=== PATIENT | female | born 1960 | race Caucasian/White ===

== ENCOUNTER 2017-09-26 10:19 | Emergency (ER) | payer MEDICAID ==
[~2017-09-26] VITALS: Ht 177.8 cm; Wt 68.0 kg
[~2017-09-26 10:19] MED LIST: AUGMENTIN 875-1 EAC1 ORAL; BACTRIM DS TAB1 EAC1 ORAL; CIPRODEX OTIC7.5 M1 BOTH EARS; CYCLOBENZAPRINE10 MG ORAL; FLONASE ALLERG9.9 ML NS; GUAIFENESIN1200 MG PO; IBUPROFEN600 MG ORAL; NKM; ZYRTEC10 MG ORAL
[2017-09-26 10:40] VITALS: BP 131/79
--- NOTE | 2017-09-26 11:22 | Emergency Room Report ---
History of Present Illness General Chief Complaint: Dizziness Source: Patient Present Illness HPI Patient presents with reports of severe dizzy episodes Also vomiting Patient reports that she had an event on Tuesday did not eat very much during that time The next day on Tuesday she had an episode in the morning when she felt the building was falling over She has had several episodes since then During the exam while turning her head she had increased nausea again Denies any focal weakness denies any chest pain or shortness of breath she has had diarrhea denies any vomiting or dysuria Allergies: Coded Allergies: No Known Allergies (Unverified , 06/22/16) Patient History Past Medical History: see triage record Pertinent Family History: none Last Menstrual Period: Perimenopausal Now: No Reviewed Nursing Documentation: PMH: Agreed, PSxH: Agreed Nursing Documentation-PMH Past Medical History: No Stated History Hx Cardiac Problems: No Hx Hypertension: No Hx Asthma: No Hx COPD: No Hx Seizures: No Review of Systems All Other Systems: negative except mentioned in HPI Physical Exam Vital Signs Date Time Temp Pulse Resp B/P (MAP) Pulse Ox O2 Delivery O2 Flow Rate FiO2 09/26/17 10:27 98.2 93 16 126/86 100 Room Air Sp02 EP Interpretation: reviewed, normal General Appearance: well appearing, no apparent distress Head: normocephalic, atraumatic Eyes: bilateral eye PERRL, bilateral eye EOMI ENT: hearing grossly normal, normal pharynx, TMs + canals normal, uvula midline Neck: full range of motion, supple, no meningismus, no bony tend Respiratory: lungs clear, normal breath sounds, no rhonchi, no respiratory distress, no retraction, no accessory muscle use Cardiovascular #1: normal peripheral pulses, regular rate, rhythm, no edema, no gallop, no JVD, no murmur Gastrointestinal: normal bowel sounds, non tender, soft, no mass, no organomegaly, non-distended, no guarding, no hernia, no pulsatile mass, no rebound Genitourinary: no CVA tenderness Musculoskeletal: normal inspection Neurologic: oriented x3, responsive, solid waste landfill technician III-XII nml as tested, motor strength/ tone normal, sensory intact Psychiatric: mood/affect normal Skin: normal color, no rash, warm/dry, palpation normal Lymphatic: normal inspection, no adenopathy Medical Decision Making Diagnostic Impression: Primary Impression: Dizziness ER Course Patient is a fairly complex patient with multiple differential to consideration including but not limited to cardiac cardiopulmonary and vascular emergencies Intracranial pathology also entertained patient however is neurologically intact I did not feel CAT scan imaging was appropriate Baseline blood work are appropriate Patient had significant positional factor with the symptoms raising the likelihood of positional vertigo and will have initial conservative outpatient trial further outpatient evaluation with MRI with the appropriate if symptoms persisted Labs Test 09/26/17 11:03 09/26/17 11:10 Urine Color Yellow Urine Appearance Clear Urine pH 6.5 (4.5-8.0) Urine Specific Kramer 1.015 (1.005-1.035) Urine Protein Negative (NEGATIVE) Urine Glucose (UA) Negative (NEGATIVE) Urine Ketones 4+ (NEGATIVE) Urine Occult Blood 1+ (NEGATIVE) Urine Nitrite Negative (NEGATIVE) Urine Bilirubin Negative (NEGATIVE) Urine Urobilinogen Normal MG/DL (0.0-1.0) Urine Leukocyte Esterase 2+ (NEGATIVE) Urine RBC 2-4 /HPF (0 - 2) Urine WBC 2-4 /HPF (0 - 2) Urine Squamous Epithelial Cells Few /LPF (NONE/OCC) Urine Bacteria Few /HPF (NONE) Urine Mucus Few /LPF (NONE/OCC) Urine Opiates Screen Negative (NEGATIVE) Urine Barbiturates Screen Negative (NEGATIVE) Phencyclidine (PCP) Screen Negative (NEGATIVE) Urine Amphetamines Screen Negative (NEGATIVE) Urine Benzodiazepines Screen Negative (NEGATIVE) Urine Cocaine Screen Negative (NEGATIVE) Urine Marijuana (THC) Screen Negative (NEGATIVE) White Blood Count 8.6 K/UL (4.8-10.8) Red Blood Count 5.13 M/UL (4.20-5.40) Hemoglobin 15.7 G/DL (12.0-16.0) Hematocrit 46.8 % (37.0-47.0) Mean Corpuscular Volume 91 FL (80-99) Mean Corpuscular Hemoglobin 30.6 PG (27.0-31.0) Mean Corpuscular Hemoglobin Concent 33.6 G/DL (32.0-36.0) Red Cell Distribution Width 11.7 % (11.6-14.8) Platelet Count 251 K/UL (150-450) Mean Platelet Volume 8.8 FL (6.5-10.1) Neutrophils (%) (Auto) 78.8 % (45.0-75.0) Lymphocytes (%) (Auto) 14.7 % (20.0-45.0) Monocytes (%) (Auto) 5.3 % (1.0-10.0) Eosinophils (%) (Auto) 0.4 % (0.0-3.0) Basophils (%) (Auto) 0.8 % (0.0-2.0) Sodium Level 141 MMOL/L (136-145) Potassium Level 3.6 MMOL/L (3.5-5.1) Chloride Level 101 MMOL/L (98-107) Carbon Dioxide Level 25 MMOL/L (21-32) Anion Gap 15 mmol/L (5-15) Blood Urea Nitrogen 9 mg/dL (7-18) Creatinine 0.7 MG/DL (0.55-1.30) Estimat Glomerular Filtration Rate > 60 mL/min (>60) Glucose Level 92 MG/DL (74-106) Calcium Level 10.0 MG/DL (8.5-10.1) Total Bilirubin 0.9 MG/DL (0.2-1.0) Aspartate Amino Transf (AST/SGOT) 20 U/L (15-37) Alanine Aminotransferase (ALT/SGPT) 23 U/L (12-78) Alkaline Phosphatase 63 U/L (46-116) Total Creatine Kinase 63 U/L (26-308) Creatine Kinase MB 0.5 NG/ML (0.0-3.6) Creatine Kinase MB Relative Index 0.7 Troponin I 0.000 ng/mL (0.000-0.056) Total Protein 8.3 G/DL (6.4-8.2) Albumin 4.4 G/DL (3.4-5.0) Globulin 3.9 g/dL Albumin/Globulin Ratio 1.1 (1.0-2.7) Lipase 57 U/L (73-393) Rhythm Strip Diag. Results EP Interpretation: yes Rate: 67 Rhythm: NSR, no PVC's, no ectopy Last Vital Signs Date Time Temp Pulse Resp B/P (MAP) Pulse Ox O2 Delivery O2 Flow Rate FiO2 09/26/17 10:40 98.4 96 1 131/79 97 Room Air Status: improved Disposition: HOME, SELF-CARE Condition: Improved Scripts Meclizine Hcl* (MECLIZINE*) 25 Mg Tablet 25 MG ORAL THREE TIMES A DAY for 14 Days, TAB Prov: ARINA ZUNIGA D.O. 09/26/17 Referrals: [facility],REFERR[facility] (PCP) Additional Instructions: Patient is provided with the discharge instructions notified to follow up with primary doctor in the next 2-3 days otherwise return to the er with any worsening symptoms. Please note that this report is being documented using DRAGON technology. This can lead to erroneous entry secondary to incorrect interpretation by the dictating instrument. ARINA ZUNIGA D.O. Sep 26, 2017 11:22
[2017-09-26 11:39] LABS: BASOPHILS % (AUTO) 0.8 % (0.0-2.0); EOSINOPHILS % (AUTO) 0.4 % (0.0-3.0); HEMATOCRIT 46.8 % (37.0-47.0); HEMOGLOBIN 15.7 G/DL (12.0-16.0); LYMPHOCYTES % (AUTO) 14.7 % (20.0-45.0); MEAN CORPUSCULAR VOLUME 91 FL (80-99); MONOCYTES % (AUTO) 5.3 % (1.0-10.0); NEUTROPHILS % (AUTO) 78.8 % (45.0-75.0); PLATELET COUNT 251 K/UL (150-450); RED BLOOD COUNT 5.13 M/UL (4.20-5.40); RED CELL DISTRIBUTION WIDTH 11.7 % (11.6-14.8); WHITE BLOOD COUNT 8.6 K/UL (4.8-10.8)
[2017-09-26 11:39] LABS: APPEARANCE,URINE CLEAR; BILIRUBIN, URINE NEGATIVE (NEGATIVE); GLUCOSE, URINE (UA) NEGATIVE (NEGATIVE); KETONES,URINE 4+ (NEGATIVE); LEUKOCYTE ESTERASE ,URINE 2+ (NEGATIVE); NITRITE,URINE NEGATIVE (NEGATIVE); PH,URINE 6.5 (4.5-8.0); PROTEIN,URINE NEGATIVE (NEGATIVE); UROBILINOGEN,URINE NORMAL MG/DL (0.0-1.0)
[2017-09-26 11:52] VITALS: BP 108/92
[2017-09-26 12:11] LABS: COLOR,URINE YELLOW
[2017-09-26 12:22] LABS: ALANINE AMINOTRANSFERASE 23 U/L (12-78); ALBUMIN 4.4 G/DL (3.4-5.0); ALBUMIN/GLOBULIN RATIO 1.1 (1.0-2.7); ALKALINE PHOSPHATASE 63 U/L (46-116); ANION GAP 15 mmol/L (5-15); ASPARTATE AMINO TRANSFERASE 20 U/L (15-37); BILIRUBIN,TOTAL 0.9 MG/DL (0.2-1.0); BLOOD UREA NITROGEN 9 mg/dL (7-18); CARBON DIOXIDE 25 MMOL/L (21-32); CHLORIDE 101 MMOL/L (98-107); CREATININE 0.7 MG/DL (0.55-1.30); POTASSIUM 3.6 MMOL/L (3.5-5.1); SODIUM 141 MMOL/L (136-145)
[2017-09-26 12:23] LABS: CKMB 0.5 NG/ML (0.0-3.6); CREATINE KINASE 63 U/L (26-308)
[2017-09-26] MEDS ORDERED: MECLIZINE HCL25 MG ORAL (13:46)
[2017-09-26 13:59] VITALS: BP 121/73
--- NOTE | 2017-09-27 16:39 | Cardiology Report ---
APPROVED REPORT EKG Measurement Heart [id number] [place] [id number] Normal sinus rhythm with sinus arrhythmia Normal ECG
--- NOTE | 2017-09-27 16:39 | Cardiology Report ---
APPROVED REPORT EKG Measurement Heart [id number] [place] 132P65 [id number] Normal sinus rhythm with sinus arrhythmia Normal ECG
--- NOTE | 2017-09-27 16:39 | Cardiology Report ---
APPROVED REPORT EKG Measurement Heart [id number] [place] 132P65 [id number] Normal sinus rhythm with sinus arrhythmia Normal ECG
== END 2017-09-26 14:00 | disposition home or self-care (01) ==
LOC: EMR 11:10
DX: R42 Dizziness and giddiness (principal); R11.0 Nausea
CPT/HCPCS: 36415; 80053; 80307; 81003; 82550; 82553; 83690; 84484; 85025; 93005; 96361; 96374; 99284; J2405

== ENCOUNTER 2017-12-02 13:57 | Emergency (ER) | payer MEDICAID ==
[~2017-12-02] VITALS: Ht 175.3 cm; Wt 68.0 kg
[~2017-12-02 13:57] MED LIST changes: +MECLIZINE HCL25 MG ORAL
[2017-12-02] MEDS ORDERED: SUDAFED 12-HOU120 MG PO (14:32)
[2017-12-02] MEDS ORDERED: IBUPROFEN600 MG ORAL (14:32)
[2017-12-02] MEDS ORDERED: PROMETHAZINE-D118 ML ORAL (14:32)
[2017-12-02] MEDS ORDERED: BENADRYL25 MG ORAL (14:32)
[2017-12-02 14:45] VITALS: BP 110/69
--- NOTE | 2017-12-02 21:50 | Emergency Room Report ---
History of Present Illness General Chief Complaint: Flu Like Symptoms Source: Patient Present Illness HPI The patient is a 56-year-old female presenting for one week of nasal congestion , cough, and facial pain. Pain described as a 7/10 dull ache primarily to the left side. Does not radiate. She states that she has had sinus problems in the past and this feels the same. She began to take Augmentin at home but states that this did not help. She denies other symptoms including nausea, vomiting, fever, chills, dizziness, blurred vision Allergies: Coded Allergies: No Known Allergies (Unverified , 06/22/16) Patient History Past Medical History: see triage record Pertinent Family History: none Reviewed Nursing Documentation: PMH: Agreed, PSxH: Agreed Nursing Documentation-PMH Hx Cardiac Problems: No Hx Hypertension: No Hx Asthma: No Hx COPD: No Hx Seizures: No Review of Systems All Other Systems: negative except mentioned in HPI Physical Exam Vital Signs Date Time Temp Pulse Resp B/P (MAP) Pulse Ox O2 Delivery O2 Flow Rate FiO2 12/02/17 14:03 98.2 91 20 110/69 96 Room Air Sp02 EP Interpretation: reviewed, normal General Appearance: no apparent distress, alert, GCS 15, non-toxic Head: normocephalic, atraumatic Eyes: bilateral eye normal inspection, bilateral eye PERRL ENT: no angioedema, normal voice, uvula midline, nasal congestion, other - TTP over the L maxillary sinus Neck: full range of motion, supple/symm/no masses Respiratory: chest non-tender, lungs clear, normal breath sounds, no wheezing, speaking full sentences Cardiovascular #1: regular rate, rhythm, no edema Genitourinary: normal inspection, no CVA tenderness Musculoskeletal: back normal, gait/station normal, normal range of motion, non- tender Neurologic: alert, oriented x3, responsive, motor strength/tone normal, sensory intact, speech normal Psychiatric: judgement/insight normal, memory normal, mood/affect normal, no suicidal/homicidal ideation Skin: normal color, no rash, warm/dry, well hydrated Lymphatic: no adenopathy Medical Decision Making PA Attestation Dr. Cook is my supervising physician. Patient management was discussed with my supervising physician Diagnostic Impression: Primary Impression: Sinusitis Qualified Codes: J01.00 - Acute maxillary sinusitis, unspecified ER Course The patient is a 56-year-old female presenting for one week of nasal congestion , cough, and facial pain. Differential diagnoses considered but not limited to: Sinusitis, pharyngitis, cluster headache, rhinitis, among others Physical exam: Afebrile. No apparent distress HEENT exam unremarkable except for nasal congestion and tenderness to palpation over the left maxillary sinus The patient will be discharged home with prescription for cough medication, Sudafed, Motrin She will follow up with primary doctor. ER precautions are given Last Vital Signs Date Time Temp Pulse Resp B/P (MAP) Pulse Ox O2 Delivery O2 Flow Rate FiO2 12/02/17 14:45 98.2 20 110/69 96 Room Air 12/02/17 14:13 91 Status: improved Disposition: HOME, SELF-CARE Condition: Improved Scripts D-Methorphan Hb/Prometh Hcl* (PROMETHAZINE-DM SYRUP*) 118 Ml Syrup 5 ML ORAL Q6H Y for For Cough, #118 ML 0 Refills Prov: PERRIANJAMMIE P.A. 12/02/17 Ibuprofen* (MOTRIN*) 600 Mg Tablet 600 MG ORAL Q8H Y for For Pain, #30 TAB 0 Refills Prov: TERZIANJAZLYNY P.A. 12/02/17 Diphenhydramine Hcl* (BENADRYL*) 25 Mg Capsule 25 MG ORAL BEDTIME Y for Itching, #14 CAP Prov: TERZIAN,JAMMIE P.A. 12/02/17 Pseudoephedrine Hcl (SUDAFED 12-HOUR) 120 Mg Tablet.er 120 MG PO Q12HR, #20 TAB Prov: TERZIANJAMMIE P.A. 12/02/17 Patient Instructions: Sinusitis, Adult Additional Instructions: I discussed my findings with the patient. All questions and concerns have been answered. Treatment and medication compliance have been addressed. I advised the patient that they need to follow up with PMD in 3-5 days. Return to ED if symptoms worsen, new symptoms arise, or if needed for any reason. Patient verbalized understanding of discharge instructions. JAMMIE MCKNIGHT Dec 02, 2017 21:50
== END 2017-12-02 14:45 | disposition home or self-care (01) ==
LOC: EMR 14:21
DX: J32.9 Chronic sinusitis, unspecified (principal)
CPT/HCPCS: 99284

== ENCOUNTER 2018-01-29 11:46 | Emergency (ER) | payer MEDICAID ==
[~2018-01-29] VITALS: Ht 175.3 cm; Wt 68.0 kg
[~2018-01-29 11:46] MED LIST changes: +BENADRYL25 MG ORAL; +PROMETHAZINE-D118 ML ORAL; +SUDAFED 12-HOU120 MG PO
[2018-01-29 12:06] VITALS: BP 120/85
[2018-01-29] MEDS ORDERED: Ipratropium 0.02% Inh Soln 2.5ml UD HHN ONE (12:30)
[2018-01-29] MEDS ORDERED: Albuterol ud Inhalation HHN ONE (12:30)
[2018-01-29 12:48] LABS: ANION GAP 7 mmol/L (5-15); BLOOD UREA NITROGEN 7 mg/dL (7-18); CARBON DIOXIDE 27 MMOL/L (21-32); CHLORIDE 103 MMOL/L (98-107); CREATININE 0.8 MG/DL (0.55-1.30); POTASSIUM 3.9 MMOL/L (3.5-5.1); SODIUM 137 MMOL/L (136-145)
[2018-01-29 12:53] LABS: ALANINE AMINOTRANSFERASE 21 U/L (12-78); ALBUMIN 3.6 G/DL (3.4-5.0); ALBUMIN/GLOBULIN RATIO 0.9 (1.0-2.7); ALKALINE PHOSPHATASE 56 U/L (46-116); ASPARTATE AMINO TRANSFERASE 17 U/L (15-37); BILIRUBIN,TOTAL 0.4 MG/DL (0.2-1.0)
[2018-01-29 13:02] LABS: BASOPHILS % (AUTO) 0.4 % (0.0-2.0); EOSINOPHILS % (AUTO) 0.7 % (0.0-3.0); HEMATOCRIT 43.8 % (37.0-47.0); HEMOGLOBIN 15.3 G/DL (12.0-16.0); LYMPHOCYTES % (AUTO) 14.5 % (20.0-45.0); MEAN CORPUSCULAR VOLUME 87 FL (80-99); MONOCYTES % (AUTO) 7.2 % (1.0-10.0); NEUTROPHILS % (AUTO) 77.2 % (45.0-75.0); PLATELET COUNT 223 K/UL (150-450); RED BLOOD COUNT 5.04 M/UL (4.20-5.40); RED CELL DISTRIBUTION WIDTH 10.9 % (11.6-14.8); WHITE BLOOD COUNT 11.4 K/UL (4.8-10.8)
[2018-01-29 13:03] LABS: APPEARANCE,URINE CLOUDY; BILIRUBIN, URINE NEGATIVE (NEGATIVE); COLOR,URINE PALE YELLOW; GLUCOSE, URINE (UA) NEGATIVE (NEGATIVE); KETONES,URINE NEGATIVE (NEGATIVE); LEUKOCYTE ESTERASE ,URINE 3+ (NEGATIVE); NITRITE,URINE NEGATIVE (NEGATIVE); PH,URINE 6.5 (4.5-8.0); PROTEIN,URINE 2+ (NEGATIVE); UROBILINOGEN,URINE NORMAL MG/DL (0.0-1.0)
[2018-01-29] MEDS ORDERED: Levofloxacin 500mg tab ORAL ONE (13:30)
--- NOTE | 2018-01-29 14:15 | Emergency Room Report ---
History of Present Illness General Chief Complaint: Upper Respiratory Illness Source: Patient Present Illness HPI Patient presents with 1 week of cough. Occasionally with green phlegm. No documented fevers, but feverish. No sore throat or headache. No NVD. + dysuria. Has possibly heard herself wheezing. She believe she has used an inhaler in the past. Also she might have taken prednisone (although she is not sure if it was her dog). No blood. Denies significant chest pain. She feels generalized achiness and rates this at 5/10. She took nyquil with little relief. She denies asthma, smoking. (However, review of meds suggests several visits in past for URI sy.) No diabetes, HTN, cardiac disease. Post menopausal. Increased stress with job. 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 Reviewed Nursing Documentation: PMH: Agreed, PSxH: Agreed Nursing Documentation-PMH Hx Cardiac Problems: No Hx Hypertension: No Hx Asthma: No Hx COPD: No Hx Seizures: No Review of Systems All Other Systems: negative except mentioned in HPI Physical Exam Vital Signs Date Time Temp Pulse Resp B/P (MAP) Pulse Ox O2 Delivery O2 Flow Rate FiO2 01/29/18 11:50 98.5 95 16 126/83 95 Room Air 98.4 01/29/18 12:30 21 Sp02 EP Interpretation: reviewed, abnormal - interpreted slightly low by me General Appearance: well appearing, no apparent distress, GCS 15 Head: normocephalic Eyes: bilateral eye normal inspection, bilateral eye PERRL ENT: moist mucus membranes Neck: supple Respiratory: lungs clear, normal breath sounds, wheezing - post tussive Cardiovascular #1: regular rate, rhythm Cardiovascular #2: 2+ radial (R) Gastrointestinal: normal inspection, normal bowel sounds, non tender, no mass, non-distended, scaphoid Musculoskeletal: back normal, gait/station normal, normal range of motion, no calf tenderness Neurologic: alert, oriented x3, grossly normal Psychiatric: mood/affect normal Skin: normal inspection, warm/dry Medical Decision Making Diagnostic Impression: Primary Impression: UTI (urinary tract infection) Qualified Codes: N30.00 - Acute cystitis without hematuria Additional Impression: Bronchitis ER Course Patient presents with URI and dysuria. Ddx: bronchitis, bronchospasm, pneumonia , atypical chest pain, PE, UTI amongst others. EKG, CXR and labs indicated. Also will be treated with breathing treatments. PE less likely due to exam ( although relative hypoxia for non-smoker). EKG without injury - NSR. CXR without infiltrate (some hyperinflation). Labs with slightly high WBC (lymphocytosis) and normal CMP. UA with pyuria. Levaquin begun (might also cover possible purulent sputum). Improved after albuterol. Discussed follow up with pulmonary. She has an appointment with an pet caregiver. Patient stable for outpatient observation and treatment. Laboratory Tests Test 01/29/18 11:55 01/29/18 12:24 Urine Color Pale yellow Urine Appearance Cloudy Urine pH 6.5 (4.5-8.0) Urine Specific Moran 1.010 (1.005-1.035) Urine Protein 2+ (NEGATIVE) H Urine Glucose (UA) Negative (NEGATIVE) Urine Ketones Negative (NEGATIVE) Urine Occult Blood 3+ (NEGATIVE) H Urine Nitrite Negative (NEGATIVE) Urine Bilirubin Negative (NEGATIVE) Urine Urobilinogen Normal MG/DL (0.0-1.0) Urine Leukocyte Esterase 3+ (NEGATIVE) H Urine RBC 5-10 /HPF (0 - 2) H Urine WBC Tntc /HPF (0 - 2) H Urine Squamous Epithelial Cells Moderate /LPF (NONE/OCC) H Urine Bacteria Moderate /HPF (NONE) H White Blood Count 11.4 K/UL (4.8-10.8) H Red Blood Count 5.04 M/UL (4.20-5.40) Hemoglobin 15.3 G/DL (12.0-16.0) Hematocrit 43.8 % (37.0-47.0) Mean Corpuscular Volume 87 FL (80-99) Mean Corpuscular Hemoglobin 30.4 PG (27.0-31.0) Mean Corpuscular Hemoglobin Concent 35.0 G/DL (32.0-36.0) Red Cell Distribution Width 10.9 % (11.6-14.8) L Platelet Count 223 K/UL (150-450) Mean Platelet Volume 8.3 FL (6.5-10.1) Neutrophils (%) (Auto) 77.2 % (45.0-75.0) H Lymphocytes (%) (Auto) 14.5 % (20.0-45.0) L Monocytes (%) (Auto) 7.2 % (1.0-10.0) Eosinophils (%) (Auto) 0.7 % (0.0-3.0) Basophils (%) (Auto) 0.4 % (0.0-2.0) Sodium Level 137 MMOL/L (136-145) Potassium Level 3.9 MMOL/L (3.5-5.1) Chloride Level 103 MMOL/L (98-107) Carbon Dioxide Level 27 MMOL/L (21-32) Anion Gap 7 mmol/L (5-15) Blood Urea Nitrogen 7 mg/dL (7-18) Creatinine 0.8 MG/DL (0.55-1.30) Estimate Glomerular Filtration Rate > 60 mL/min (>60) Glucose Level 96 MG/DL (74-106) Calcium Level 9.0 MG/DL (8.5-10.1) Total Bilirubin 0.4 MG/DL (0.2-1.0) Aspartate Amino Transferase (AST) 17 U/L (15-37) Alanine Aminotransferase (ALT) 21 U/L (12-78) Alkaline Phosphatase 56 U/L (46-116) Total Protein 7.6 G/DL (6.4-8.2) Albumin 3.6 G/DL (3.4-5.0) Globulin 4.0 g/dL Albumin/Globulin Ratio 0.9 (1.0-2.7) L EKG Diagnostic Results Rate: normal Rhythm: NSR ST Segments: no acute changes Rhythm Strip Diag. Results EP Interpretation: yes Rhythm: NSR, no PVC's, no ectopy Chest X-Ray Diagnostic Results Chest X-Ray Diagnostic Results : Chest X-Ray Ordered: Yes # of Views/Limited/Complete: 1 View Indication: Shortness of Breath Interpretation: no consolidation, no effusion, no pneumothorax, no acute cardiopulmonary disease Impression: No acute disease Electronically Signed by: Electronically signed by Shahriar Adler MD Last Vital Signs Date Time Temp Pulse Resp B/P (MAP) Pulse Ox O2 Delivery O2 Flow Rate FiO2 01/29/18 14:30 98.3 97 16 111/73 98 Room Air 21 98.3 Status: improved Disposition: HOME, SELF-CARE Condition: Improved Scripts Albuterol Sulfate* (ALBUTEROL SULFATE MDI*) 8.5 Gm Hfa.aer.ad 2 PUFF INH Q6H, #1 EA 0 Refills Prov: Shahriar Adler M.D. 01/29/18 Guaifenesin/Codeine Phos* (ROBITUSSIN AC*) 118 Ml Liquid 1 TSP ORAL Q6H Y for For Cough, #90 ML 0 Refills Prov: Shahriar Adler M.D. 01/29/18 Levofloxacin* (LEVAQUIN*) 500 Mg Tablet 500 MG ORAL DAILY, #7 TAB Prov: Shahriar Adler M.D. 01/29/18 Referrals: NON PHYSICIAN (PCP) Shahriar Adler M.D. Jan 29, 2018 14:15
[2018-01-29] MEDS ORDERED: LEVAQUIN500 MG ORAL (14:20)
[2018-01-29] MEDS ORDERED: ALBUTEROL SULF8.5 GM INH (14:20)
[2018-01-29] MEDS ORDERED: GUAIFENESIN-CO118 M1 ORAL (14:20)
[2018-01-29 14:26] VITALS: BP 111/73
[2018-01-29 14:30] VITALS: BP 111/73
--- NOTE | 2018-01-30 10:39 | Diagnostic Imaging Report ---
Indication: Shortness of breath Technique: One view of the chest Comparison: none Findings: Lungs and pleural spaces are clear. Heart size is normal Impression: No acute process
--- NOTE | 2018-02-02 21:36 | Cardiology Report ---
APPROVED REPORT EKG Measurement Heart [id number] [place] [id number] Normal sinus rhythm with sinus arrhythmia Septal infarct, age undetermined Abnormal ECG
== END 2018-01-29 14:30 | disposition home or self-care (01) ==
LOC: EMR 12:27
DX: J40 Bronchitis, not specified as acute or chronic (principal); N30.00 Acute cystitis without hematuria
CPT/HCPCS: 36415; 71045; 80053; 81003; 85025; 87086; 87181; 93005; 94640; 94664; 99283

== ENCOUNTER 2018-05-01 12:10 | Emergency (ER) | payer MEDICAID ==
[~2018-05-01] VITALS: Ht 175.3 cm; Wt 68.0 kg
[~2018-05-01 12:10] MED LIST changes: +ALBUTEROL SULF8.5 GM INH; +GUAIFENESIN-CO118 M1 ORAL; +LEVAQUIN500 MG ORAL
[2018-05-01] MEDS ORDERED: VALACYCLOVIR1000 MG ORAL (12:23)
[2018-05-01] MEDS ORDERED: FLUTICASONE PRO15 GM TOPIC (12:23)
[2018-05-01] MEDS ORDERED: Tetanus/Diptheria/Pertussis Vaccine 0.5ml Syr IM ONE (13:00)
[2018-05-01 13:06] VITALS: BP 111/82
--- NOTE | 2018-05-01 13:16 | Emergency Room Report ---
History of Present Illness General Chief Complaint: Animal Bite Source: Patient Present Illness HPI 57-year-old female presents emergency department complaining of 10 out of 10 in severity localized pain, swelling, tenderness and itching to area on the dorsum of the left foot since yesterday. Patient reports that she believes she was bit by some type of insect. Patient states that redness has developed since onset. Patient denies fevers or chills. Patient does not know when her last tetanus vaccination was. Patient also states that she needs medication refills for her migraine medication, nasal spray and valtrex. Denies CP, Palpitations, LOC, AMS, dizziness, Changes in Vision, Sensation, paresthesias, or a sudden severe headache. Allergies: Coded Allergies: No Known Allergies (Unverified , 06/22/16) Patient History Past Medical History: see triage record Past Surgical History: none Pertinent Family History: none Last Menstrual Period: Unknown Now: No Immunizations: other Reviewed Nursing Documentation: PMH: Agreed; PSxH: Agreed Nursing Documentation-PMH Past Medical History: No Stated History Hx Cardiac Problems: No Hx Hypertension: No Hx Asthma: No Hx COPD: No Hx Seizures: No Review of Systems All Other Systems: negative except mentioned in HPI Physical Exam Vital Signs Date Time Temp Pulse Resp B/P (MAP) Pulse Ox O2 Delivery O2 Flow Rate FiO2 05/01/18 12:16 98.2 91 16 109/80 95 Room Air 98.2 Sp02 EP Interpretation: reviewed, normal General Appearance: no apparent distress, alert, GCS 15, non-toxic Head: normocephalic, atraumatic ENT: hearing grossly normal, normal voice, other - No Swelling of the lips or tongue Neck: full range of motion Respiratory: chest non-tender, lungs clear, normal breath sounds, no respiratory distress, no wheezing, speaking full sentences Cardiovascular #1: regular rate, rhythm, no edema, normal capillary refill Musculoskeletal: back normal, gait/station normal, normal range of motion, non- tender Neurologic: alert, oriented x3, responsive, motor strength/tone normal, sensory intact, normal gait, speech normal, grossly normal Psychiatric: judgement/insight normal Skin: warm/dry, well hydrated, other - 2 cm erythematous lesion to the dorsum of the left foot with some surrounding erythema that does benita. No blisters, vesicles, pustules, discharge noted. Lymphatic: no adenopathy Medical Decision Making PA Attestation Dr. Cintron is my supervising Physician whom patient management has been discussed with. Diagnostic Impression: Primary Impression: Insect bite Qualified Codes: W57.XXXA - Bitten or stung by nonvenomous insect and other nonvenomous arthropods, initial encounter Additional Impressions: Medication refill Cellulitis Qualified Codes: L03.116 - Cellulitis of left lower limb ER Course 57-year-old female presents emergency department complaining of 10 out of 10 in severity localized pain, swelling, tenderness and itching to area on the dorsum of the left foot since yesterday. Patient reports that she believes she was bit by some type of insect. Patient states that redness has developed since onset. Patient denies fevers or chills. Patient does not know when her last tetanus vaccination was. Patient also states that she needs medication refills for her migraine medication, nasal spray and Valtrex. Denies CP, Palpitations, LOC, AMS, dizziness, Changes in Vision, Sensation, paresthesias, or a sudden severe headache. Denies CP, Palpitations, LOC, AMS, dizziness, Changes in Vision, Sensation, paresthesias, or a sudden severe headache. Ddx considered but are not limited to cellulitis, scabies, insect bites, tic bites, spider bites, contact dermatitis, Drug reaction, allergic reaction, fungal infection, lice. Vital signs: are WNL, pt. is afebrile H&PE are most consistent with insect bite with mild cellulitis. ORDERS: none required at this time, the diagnosis is clinical ED INTERVENTIONS: -Tdap IM DISCHARGE: At this time pt. is stable for d/c to home. Will provide printed patient care instructions, and any necessary prescriptions. Care plan and follow up instructions have been discussed with the patient prior to discharge. Last Vital Signs Date Time Temp Pulse Resp B/P (MAP) Pulse Ox O2 Delivery O2 Flow Rate FiO2 05/01/18 13:06 98.2 84 16 111/82 99 Room Air 98.2 Disposition: HOME, SELF-CARE Condition: Stable Scripts Hydrocortisone 2% Cream (ANTI-ITCH 2% CREAM) Y Cr 1 APPLIC TP Q6HR, #28.3 GM Prov: Gabby Lea 05/01/18 Cephalexin* (KEFLEX*) 500 Mg Capsule 500 MG ORAL EVERY 12 HOURS for 7 Days, #14 CAP 0 Refills Prov: Gabby Lea 05/01/18 Sumatriptan Succinate (SUMATRIPTAN SUCCINATE) 50 Mg Tablet 50 MG PO DAILY, #9 TAB Prov: Gabby Lea 05/01/18 Fluticasone Propionate* (FLUTICASONE PROPIONATE*) 16 Gm [place].susp 1 SPRAY NASAL DAILY, #16 GM Prov: Gabby Lea 05/01/18 Valacyclovir Hcl (VALTREX) 1,000 Mg Tablet 1000 MG PO TID for 7 Days, #21 TAB Prov: Gabby Lea 05/01/18 Referrals: [facility]ERR[facility] (PCP) Patient Instructions: Insect Bite, [id number], Medicine Refill at the Emergency Department Additional Instructions: Take medications as directed. Follow up with a Primary Care Provider in 3-5 days, even if your symptoms have resolved. --Please review list of primary care clinics, if you do not already have a primary care provider Return sooner to ED if new symptoms occur, or current symptoms become worse. - Please note that this Emergency Department Report was dictated using [employer] weaver technology software, occasionally this can lead to erroneous entry secondary to interpretation by the dictation equipment. Gabby Lea May 01, 2018 13:16
[2018-05-01] MEDS ORDERED: FLUTICASONE PRO16 G1 NASAL (13:19)
[2018-05-01] MEDS ORDERED: VALTREX1000 MG PO (13:19)
[2018-05-01] MEDS ORDERED: CEPHALEXIN500 MG ORAL (13:19)
[2018-05-01] MEDS ORDERED: SUMATRIPTAN SUC50 MG PO (13:19)
[2018-05-01] MEDS ORDERED: ANTI-ITCH28 G1 TP (13:19)
[2018-05-01 13:25] VITALS: BP 111/82
== END 2018-05-01 13:25 | disposition home or self-care (01) ==
LOC: EMR 13:07
DX: S90.862A Insect bite (nonvenomous), left foot, initial encounter (principal); W57.XXXA Bitten or stung by nonvenomous insect and other nonvenomous arthropods, initial encounter; Y92.9 Unspecified place or not applicable; G43.909 Migraine, unspecified, not intractable, without status migrainosus
CPT/HCPCS: 90471; 90715; 99284

== ENCOUNTER 2018-09-06 14:52 | Emergency (ER) | payer MEDICAID ==
[~2018-09-06] VITALS: Ht 175.3 cm; Wt 68.0 kg
[~2018-09-06 14:52] MED LIST changes: +ANTI-ITCH28 G1 TP; +CEPHALEXIN500 MG ORAL; +FLUTICASONE PRO15 GM TOPIC; +FLUTICASONE PRO16 G1 NASAL; +SUMATRIPTAN SUC50 MG PO; +VALACYCLOVIR1000 MG ORAL; +VALTREX1000 MG PO
[2018-09-06 15:03] VITALS: BP 112/76
[2018-09-06] MEDS ORDERED: Benzonatate 100mg Perles ORAL ONE (15:15)
[2018-09-06] MEDS ORDERED: FLUTICASONE PRO16 G1 NASAL (15:26)
[2018-09-06] MEDS ORDERED: SUDAFED PE PRE1 EACH PO (15:26)
[2018-09-06] MEDS ORDERED: VALACYCLOVIR500 MG ORAL (15:26)
[2018-09-06] MEDS ORDERED: TESSALON PERLE100 MG ORAL (15:26)
[2018-09-06] MEDS ORDERED: ALBUTEROL SULF8.5 GM INH (15:26)
--- NOTE | 2018-09-06 15:28 | Emergency Room Report ---
History of Present Illness General Chief Complaint: Upper Respiratory Illness Source: Patient Present Illness HPI 57-year-old female patient presents ER complaining of "I think I have a sinus problem" for the past week. Patient reports runny nose and cough during this time. Reports hx of similar symptoms in the past. Reports cough exudates, denies hemoptysis. Denies fever, chest pain, shortness of breath. Denies history of asthma, states she has a history of bronchitis that she usually uses an inhaler for, states has not had these recently, requesting refill of medication, denies difficulty breathing. States that she has been taking Jeri- [place] plus for symptoms. Also complaining of "losing my voice". Reports no vomiting, diarrhea, abdominal pain. Denies other acute symptoms. Denies headache.patient also requesting refill of medication for shingles, states ran out of antiviral medication. Denies shingles rash at this time. Denies rash. Denies calf pain, denies smoking. Allergies: Coded Allergies: No Known Allergies (Unverified , 06/22/16) Patient History Past Medical History: see triage record Now: No Reviewed Nursing Documentation: PMH: Agreed; PSxH: Agreed Nursing Documentation-PMH Past Medical History: No History, Except For Hx Cardiac Problems: No - Ear infection, sinus infection Hx Hypertension: No Hx Asthma: No Hx COPD: No Hx Seizures: No Review of Systems All Other Systems: negative except mentioned in HPI Physical Exam Vital Signs Date Time Temp Pulse Resp B/P (MAP) Pulse Ox O2 Delivery O2 Flow Rate FiO2 09/06/18 14:55 99.0 93 20 112/76 98 Room Air 99.0 Sp02 EP Interpretation: reviewed, normal General Appearance: well appearing, no apparent distress, alert, GCS 15, non- toxic Head: normocephalic, atraumatic, other - no frontal or maxillary sinus tenderness to palpation bilaterally Eyes: bilateral eye normal inspection, bilateral eye PERRL ENT: hearing grossly normal, normal pharynx, no angioedema, normal voice, TMs + canals normal, uvula midline, moist mucus membranes, other Neck: full range of motion, no bony tend Respiratory: lungs clear, normal breath sounds, no rhonchi, no respiratory distress, no accessory muscle use, no wheezing, speaking full sentences, other - no stridor Cardiovascular #1: regular rate, rhythm, no edema Gastrointestinal: non tender, soft, no mass, non-distended, no guarding, no rebound Genitourinary: no CVA tenderness Musculoskeletal: back normal, digits/nails normal, gait/station normal, normal range of motion, non-tender, no calf tenderness, Bri's Sign negative Neurologic: alert, oriented x3, responsive, motor strength/tone normal, sensory intact Psychiatric: mood/affect normal Skin: no rash Lymphatic: no adenopathy Medical Decision Making PA Attestation Dr. Cintron is my supervising Physician whom patient management has been discussed with. Diagnostic Impression: Primary Impression: Upper respiratory infection Additional Impressions: Laryngitis Sinusitis ER Course Pt presents to ED c/o sinus pain and voice loss and allergy symptoms. DDX considered but are not limited to influenza, viral URI, pneumonia, strep throat, rhinitis, sinusitis, otitis media, otitis externa, laryngitis, cluster MILES. VITAL SIGNS are WNL, patient is afebrile. ER COURSE: Provided with Jose Fuchs in the ER for cough. Lungs clear to auscultation, no wheezes, rhonci or rales. patient afebrile. Low suspicion for pneumonia, will not order CXR at this time. no tonsillar exudates, no pharyngeal erythema, history of cough, no fever, no stridor, uvula midline, low suspicion for peritonsillar abscess. Likely laryngitis causing raspy voice symptoms, advised patient on voice rest and fluids. no sinus tenderness to palpation, no fever, low suspicion for bacterial sinusitis, does not require antibiotics at this time, patient with Rx for symptomatic treatment. Likely viral etiology of symptoms. Symptomatic treatment. drink plenty of fluids. Salt water gargles for sore throat. Followup with PCP for further treatment and/or referral as needed. ER precautions given. Will provide patient with refill of shingles medication and albuterol inhaler. informed patient ER does not normally refills medications, follow-up with primary care provider for future refills. Advised follow-up with primary care provider discuss further treatment and referral as needed. Does not require breathing treatment at this time. Return to ER for new or worsening of symptoms including but not limited to difficulty breathing. DISCHARGE: -Rx given for albuterol inhaler -Rx given for Valacyclovir -Rx given for Sudafed -Rx given for fluticasone -Rx given for Tessalon Perles At this time pt is stable for d/c to home. Patient is resting comfortably, in no acute distress, nontoxic appearing. Patient to take medications as instructed Will provide with patient care instructions and any necessary prescriptions. Care plan and follow-up instructions provided. Patient instructed to follow-up with primary care provider in 3 - 5 days. Patient questions asked and answered. Patient reports understanding and agreement to treatment plan. ER precautions given. Patient instructed to return to ER immediately for any new or worsening of symptoms including but not limited to increasing SOB, persistent fever, intractable vomiting. - Please note that this Emergency Department Report was dictated using [employer] teacher technology software, occasionally this can lead to erroneous entry secondary to interpretation by the dictation equipment. Last Vital Signs Date Time Temp Pulse Resp B/P (MAP) Pulse Ox O2 Delivery O2 Flow Rate FiO2 09/06/18 15:03 93 20 Room Air 09/06/18 15:03 99.0 112/76 98 99.0 Disposition: HOME, SELF-CARE Condition: Stable Scripts Fluticasone Propionate* (FLUTICASONE PROPIONATE*) 16 Gm [place].susp 1 SPRAY NASAL TWICE A DAY, #16 GM Prov: Marino Faust.AJeyson 09/06/18 D-Methorphan/PE/Acetaminophen (Sudafed PE Pressure+Pain+Cough) 1 Each Tablet 1 EACH PO DAILY, #24 TAB Prov: Marino Faust.Elayne. 09/06/18 Valacyclovir Hcl* (VALTREX*) 500 Mg Tablet 1000 MG ORAL TID for 7 Days, #21 TAB Prov: Marino Faust.Chay 09/06/18 Albuterol Sulfate* (ALBUTEROL SULFATE MDI*) 8.5 Gm Hfa.aer.ad 2 PUFF INH Q6H, #1 INH 0 Refills Prov: Marino Faust.Chay 09/06/18 Benzonatate* (TESSALON PERLE*) 100 Mg Capsule 100 MG ORAL THREE TIMES A DAY, #15 PERLE Prov: Marino Faust.A. 09/06/18 Patient Instructions: Laryngitis, [id number], Sinusitis, Adult, Aauv-po-Hevy , Upper Respiratory Infection, Adult Additional Instructions: Followup with primary care provider in 3 -5 days. discuss need for antibiotic treatment at that time. Also follow-up for breathing symptoms to discuss further treatment and referral as needed. Advised on voice rest. Take medications as directed. Patient questions asked and answered. ER precautions given, patient instructed to return to ER immediately for any new or worsening of symptoms. Marino Faust Sep 06, 2018 15:28
[2018-09-06 15:37] VITALS: BP 112/76
== END 2018-09-06 15:38 | disposition home or self-care (01) ==
LOC: EMR 15:14
DX: J06.9 Acute upper respiratory infection, unspecified (principal); J04.0 Acute laryngitis; J32.9 Chronic sinusitis, unspecified
CPT/HCPCS: 99283

== ENCOUNTER 2019-01-31 16:41 | Emergency (ER) | payer MEDICAID ==
[~2019-01-31] VITALS: Ht 176.5 cm; Wt 70.3 kg
[~2019-01-31 16:41] MED LIST changes: +SUDAFED PE PRE1 EACH PO; +TESSALON PERLE100 MG ORAL; +VALACYCLOVIR500 MG ORAL
--- NOTE | 2019-01-31 16:50 | NUR ---
ED Nurse Note: PAtient walked into ED c/o 08/30 frontal headache accompanied by vomiting and dizziness. patient states that it has been an ongoing issue for the past 4 days now, reports of vomitting "many" times today. patient is alert and oriented x4, ambulatory with a steady gait, VSS
[2019-01-31 16:52] VITALS: BP 142/96
[2019-01-31] MEDS ORDERED: Ketorolac 30mg Inj IV ONE (17:30)
[2019-01-31] MEDS ORDERED: DiphenhydrAMINE 50mg/ml Inj IVP ONE (17:30)
[2019-01-31] MEDS ORDERED: Metoclopramide 10mg/2ml Inj IVP ONE (17:30)
[2019-01-31 17:54] LABS: BILIRUBIN, URINE NEGATIVE (NEGATIVE); COLOR,URINE PALE YELLOW; GLUCOSE, URINE (UA) NEGATIVE (NEGATIVE); KETONES,URINE NEGATIVE (NEGATIVE); LEUKOCYTE ESTERASE ,URINE NEGATIVE (NEGATIVE); NITRITE,URINE NEGATIVE (NEGATIVE); PH,URINE 8 (4.5-8.0); PROTEIN,URINE NEGATIVE (NEGATIVE); UROBILINOGEN,URINE NORMAL MG/DL (0.0-1.0)
[2019-01-31 17:55] LABS: APPEARANCE,URINE CLEAR
[2019-01-31] MEDS ORDERED: IMITREX50 MG ORAL (18:54)
--- NOTE | 2019-01-31 18:54 | Emergency Room Report ---
History of Present Illness General Chief Complaint: Headache Source: Medical Record Present Illness HPI 58 YO female presents to the ED c/o 08/30 in severity migraine with associated light sensitivity, hyperacusis, and vomiting x 4 days. describes typical migraine, currently out of migraine medication Imitrex. She reports progressive onset. denies fevers or chills. Denies neck pain /stiffness. pt. denies recent head injury/trauma. pt. reports pulsatile left sided MILES. states she has taken Excedrin migraine without relief. pt. denies blood in the vomit. she reports being unable to tolerate fluids or food and that today she began having bouts of dizziness with standing up too quickly. Denies CP, Palpitations , LOC, AMS, dizziness, Changes in Vision, Sensation, paresthesias, or a sudden severe headache. Pt. also reports resolving shingles rash and states she has been taking acyclovir. Allergies: Coded Allergies: No Known Allergies (Unverified , 06/22/16) Patient History Past Medical History: see triage record Past Surgical History: none Pertinent Family History: none Last Menstrual Period: menopause Reviewed Nursing Documentation: PMH: Agreed; PSxH: Agreed Nursing Documentation-PMH Past Medical History: No History, Except For Hx Cardiac Problems: No - Ear infection, sinus infection Hx Hypertension: No Hx Asthma: No Hx COPD: No Hx Seizures: No Review of Systems All Other Systems: negative except mentioned in HPI Physical Exam Vital Signs Date Time Temp Pulse Resp B/P (MAP) Pulse Ox O2 Delivery O2 Flow Rate FiO2 01/31/19 16:45 98.1 92 18 142/96 98 Room Air Sp02 EP Interpretation: reviewed, normal General Appearance: no apparent distress, alert, GCS 15, non-toxic Head: normocephalic, atraumatic Eyes: bilateral eye normal inspection, bilateral eye PERRL, bilateral eye photophobia ENT: hearing grossly normal, normal voice, TMs + canals normal, uvula midline Neck: full range of motion, no meningismus, no bony tend Respiratory: lungs clear, normal breath sounds, speaking full sentences Cardiovascular #1: regular rate, rhythm Gastrointestinal: normal bowel sounds, non tender, soft Genitourinary: normal inspection, no CVA tenderness Musculoskeletal: back normal, gait/station normal, normal range of motion, non- tender Neurologic: alert, oriented x3, responsive, motor strength/tone normal, sensory intact, normal gait, speech normal, other - no nystagmus, no gross motor weakness, grossly normal Psychiatric: judgement/insight normal Skin: normal color, warm/dry, well hydrated, rash - erythema and mild crusting noted to the left upper gluteal region, 2-3cm area. Medical Decision Making PA Attestation Dr. Mora is my supervising Physician whom patient management has been discussed with. Diagnostic Impression: Primary Impression: Headache Qualified Codes: R51 - Headache ER Course 58 YO female presents to the ED c/o 08/30 in severity migraine with associated light sensitivity, hyperacusis, and vomiting x 4 days. describes typical migraine, currently out of migraine medication Imitrex. She reports progressive onset. denies fevers or chills. Denies neck pain /stiffness. pt. denies recent head injury/trauma. pt. reports pulsatile left sided MILES. states she has taken Excedrin migraine without relief. pt. denies blood in the vomit. she reports being unable to tolerate fluids or food and that today she began having bouts of dizziness with standing up too quickly. Denies CP, Palpitations , LOC, AMS, dizziness, Changes in Vision, Sensation, paresthesias, or a sudden severe headache. Ddx considered but are not limited to migraine, SAH, Pseudomotor Cerebri, Mass lesion, Cluster MILES, Tension MILES, Post lumbar puncture MILES. Vital signs: are WNL, pt. is afebrile H&PE are most consistent with migraine headache with mild dehydration. no focal neurological deficits. ORDERS: -UA: unremarkable ED INTERVENTIONS: -1 liter NS -Reglan IV -Benadryl IV - Toradol IV -Fioricet --Re-evaluation pt. reports symptoms have subsided and she feels " much better" -I do not identify an emergent condition at this time. With current presentation , pt. is stable for close outpatient follow up and conservative treatment. D/ w pt. to return promptly to ED with worsening or new symptoms.- Pt. verbalizes' understanding and agreement with proposed treatment plan. DISCHARGE: At this time pt. is stable for d/c to home. Will provide printed patient care instructions, and any necessary prescriptions. Care plan and follow up instructions have been discussed with the patient prior to discharge. Labs Test 01/31/19 17:30 Urine Color Pale yellow Urine Appearance Clear Urine pH 8 (4.5-8.0) Urine Specific [place] 1.010 (1.005-1.035) Urine Protein Negative (NEGATIVE) Urine Glucose (UA) Negative (NEGATIVE) Urine Ketones Negative (NEGATIVE) Urine Blood Negative (NEGATIVE) Urine Nitrite Negative (NEGATIVE) Urine Bilirubin Negative (NEGATIVE) Urine Urobilinogen Normal MG/DL (0.0-1.0) Urine Leukocyte Esterase Negative (NEGATIVE) Last Vital Signs Date Time Temp Pulse Resp B/P (MAP) Pulse Ox O2 Delivery O2 Flow Rate FiO2 01/31/19 16:52 98.1 82 18 142/96 98 Room Air Disposition: HOME, SELF-CARE Condition: Stable Scripts Sumatriptan Succinate* (IMITREX*) 50 Mg Tablet 50 MG ORAL DAILY PRN MIGRAINE, #5 TAB Prov: Gabby Lea 01/31/19 Referrals: NON PHYSICIAN (PCP) Patient Instructions: Migraine Headache Additional Instructions: Take medications as directed. Follow up with a Primary Care Provider in 3-5 days For a referral to have NEUROLOGIST Evaluation, even if your symptoms have resolved. --Please review list of primary care clinics, if you do not already have a primary care provider Return sooner to ED if new symptoms occur, or current symptoms become worse. - Please note that this Emergency Department Report was dictated using [employer] Games[employer] division director technology software, occasionally this can lead to erroneous entry secondary to interpretation by the dictation equipment. Gabby Lea Jan 31, 2019 18:54
--- NOTE | 2019-01-31 19:10 | NUR ---
HAND-OFF: Report given to J CARLOS Florez.
[2019-01-31 19:22] VITALS: BP 130/97
[2019-01-31 19:23] VITALS: BP 142/96
--- NOTE | 2019-01-31 19:24 | NUR ---
ER DISCHARGE NOTE: Patient is cleared to be discharged per ERMD, pt is aox4, on room air, with stable vital signs. pt was given dc and prescription instructions, pt was able to verbalize understanding, pt id band and iv site removed without complications. pt is able to ambulate with steady gait. pt took all belongings.
== END 2019-01-31 19:24 | disposition home or self-care (01) ==
LOC: EMR 17:31
DX: R51 Headache (principal)
CPT/HCPCS: 81003; 96361; 96374; 96375; 99284; J1200; J1885; J2765

== ENCOUNTER 2020-02-12 13:00 | Emergency (ER) | payer MEDICAID ==
[~2020-02-12] VITALS: Ht 177.8 cm; Wt 72.6 kg
[~2020-02-12 13:00] MED LIST changes: +IMITREX50 MG ORAL
--- NOTE | 2020-02-12 13:18 | NUR ---
ED Nurse Note: Addendum: 02/12/20 at 1318 by BDUTTON Patient walked in to ER due to needing medicaiton refill. Reports she needs Valacyclovir and Sumatriptan. Pt in stable condition, vitals stable.
[2020-02-12 13:19] VITALS: BP 129/85
--- NOTE | 2020-02-12 13:56 | Emergency Room Report ---
History of Present Illness General Chief Complaint: Medication Refill Source: Patient Present Illness HPI 59 YO female presents to the ED c/o running out of her medication for valacyclovir and sumatriptan. Patient states that her primary care doctor is not currently seeing patients due to COVID-19 virus. And she came to the ER for medication refill. Patient denies symptoms at this time. She reports she takes her medications as needed. Patient denies fevers or chills. Patient denies any medical complaints at this time. She denies pain. COVID-19 risk:Contact w/high r: No COVID-19 risk:Travel to affect: No Has patient experienced blood: No Allergies: Coded Allergies: No Known Allergies (Unverified , 06/22/16) Patient History Past Medical History: see triage record Past Surgical History: none Pertinent Family History: none Now: No Immunizations: UTD Reviewed Nursing Documentation: PMH: Agreed; PSxH: Agreed Nursing Documentation-PMH Past Medical History: No Stated History Hx Cardiac Problems: No - Ear infection, sinus infection Hx Hypertension: No Hx Asthma: No Hx COPD: No Hx Seizures: No Review of Systems All Other Systems: negative except mentioned in HPI Physical Exam Vital Signs Date Time Temp Pulse Resp B/P (MAP) Pulse Ox O2 Delivery O2 Flow Rate FiO2 02/12/20 13:06 98.2 89 16 133/82 (99) 98 Room Air Sp02 EP Interpretation: reviewed, normal General Appearance: no apparent distress, alert, GCS 15, non-toxic Head: normocephalic, atraumatic Eyes: bilateral eye normal inspection, bilateral eye PERRL ENT: hearing grossly normal, normal voice Neck: full range of motion Respiratory: chest non-tender, lungs clear, normal breath sounds, speaking full sentences Cardiovascular #1: regular rate, rhythm, no edema Gastrointestinal: non tender, soft Rectal: deferred Genitourinary: normal inspection Musculoskeletal: normal range of motion, gait/station normal, non-tender Neurologic: alert, motor strength/tone normal, oriented x3, sensory intact, responsive, speech normal Psychiatric: judgement/insight normal Skin: no rash, normal color Medical Decision Making PA Attestation Dr. Cintron Is my supervising Physician whom patient management has been discussed with. Diagnostic Impression: Primary Impression: Medication refill ER Course 59 YO female presents to the ED c/o running out of her medication for valacyclovir and sumatriptan. Patient states that her primary care doctor is not currently seeing patients due to COVID-19 virus. And she came to the ER for medication refill. Patient denies symptoms at this time. She reports she takes her medications as needed. Patient denies fevers or chills. Patient denies any medical complaints at this time. She denies pain. Ddx considered but are not limited to: drug seeking, OD, emergent need for medication refill. Herpes infection. Migraine Vital signs: are WNL, pt. is afebrile H&PE are most consistent with need for medication refill. ORDERS: none required at this time, the diagnosis is clinical ED INTERVENTIONS: None required at this time. DISCHARGE: At this time pt. is stable for d/c to home. Will provide printed patient care instructions, and any necessary prescriptions. Care plan and follow up instructions have been discussed with the patient prior to discharge. Last Vital Signs Date Time Temp Pulse Resp B/P (MAP) Pulse Ox O2 Delivery O2 Flow Rate FiO2 02/12/20 13:19 98.2 72 16 129/85 98 Room Air Disposition: HOME, SELF-CARE Condition: Stable Referrals: [facility],REFERRING (PCP) Patient Instructions: Medicine Refill at the Emergency Department Additional Instructions: Take medications as directed. Follow up with a Primary Care Provider in 3-5 days, even if your symptoms have resolved. Return sooner to ED if new symptoms occur, or current symptoms become worse. - Please note that this Emergency Department Report was dictated using [employer]ard[employer] third class technology software, occasionally this can lead to erroneous entry secondary to interpretation by the dictation equipment. Gabby Lea Feb 12, 2020 13:56
[2020-02-12] MEDS ORDERED: SUMATRIPTAN SUC25 MG PO (13:59)
[2020-02-12] MEDS ORDERED: VALACYCLOVIR500 MG ORAL (13:59)
[2020-02-12 14:05] VITALS: BP 121/76
--- NOTE | 2020-02-12 14:05 | NUR ---
ER DISCHARGE NOTE: Patient is cleared to be discharged per ERMD, pt is aox4, on room air, with stable vital signs. pt was given dc and prescription instructions and was able to verbalize understanding, pt id band removed. pt is able to ambulate with steady gait. pt took all belongings.
== END 2020-02-12 14:05 | disposition home or self-care (01) ==
LOC: EMR 13:30
DX: Z76.0 Encounter for issue of repeat prescription (principal)
CPT/HCPCS: 99282